=== PATIENT | male | born 1950 | race Caucasian/White ===

== ENCOUNTER 2022-05-24 12:18 | Outpatient (CLI) | payer MEDICARE, OTHER | END 2022-05-24 12:19 | disposition home or self-care (01) | LOC: BUREKG 12:18 | PROVIDERS: ATTEND Physician Assistant Medical | DX: N18.6 End stage renal disease (principal); I85.00 Esophageal varices without bleeding; K31.819 Angiodysplasia of stomach and duodenum without bleeding; B37.81 Candidal esophagitis; D62 Acute posthemorrhagic anemia; R00.0 Tachycardia, unspecified | CPT/HCPCS: 93005; 93010 ==